=== PATIENT | male | born 1995 | race American Indian/Alaskan Native ===

== ENCOUNTER 2017-11-10 14:24 | Emergency (ER) | payer SELFPAY ==
[2017-11-10 14:31] VITALS: BP 131/76; PULSE 82; RESP 18; TEMP 98; O2SAT 100
--- NOTE | 2017-11-10 15:10 | C.PDOC ---
History Of Present Illness 22-year-old male, presents to the emergency department with complaints of abdominal pain, associated with nausea, one episode of non-bloody/non-bilious vomiting and several episodes of watery/non-bloody diarrhea since 02:00 this morning. denies fever, chills, back pain, symptoms, or any other associated symptoms. No other complaints at this time. Time Seen by Provider: 11/10/17 15:07 Chief Complaint (Nursing): Abdominal Pain History Per: Patient History/Exam Limitations: no limitations Onset/Duration Of Symptoms: Days Current Symptoms Are (Timing): Still Present Past Medical History Reviewed: Historical Data, Nursing Documentation, Vital Signs Vital Signs: Last Vital Signs Temp 98.0 F 11/10/17 14:28 Pulse 82 11/10/17 14:28 Resp 18 11/10/17 14:28 BP 131/76 11/10/17 14:28 Pulse Ox 100 11/10/17 15:59 Family History: States: No Known Family Hx - Social History Hx Alcohol Use: Yes Hx Substance Use: Yes (Marijuana) Review Of Systems Constitutional: Negative for: Fever, Chills Cardiovascular: Negative for: Chest Pain Respiratory: Negative for: Shortness of Breath Gastrointestinal: Positive for: Nausea, Vomiting, Abdominal Pain, Diarrhea Genitourinary: Negative for: Hematuria Musculoskeletal: Negative for: Back Pain Physical Exam - Physical Exam Appears: Non-toxic, No Acute Distress Skin: Normal Color, Warm, Dry, No Rash Head: Normacephalic Eye(s): bilateral: PERRL Nose: Normal Oral Mucosa: Moist Lips: Normal Appearing Neck: Normal ROM Chest: Symmetrical Cardiovascular: Rhythm Regular, No Murmur Respiratory: Normal Breath Sounds, No Accessory Muscle Use Gastrointestinal/Abdominal: Soft, No Tenderness Extremity: Normal ROM, No Deformity, No Swelling Neurological/Psych: Oriented x3, Normal Speech ED Course And Treatment O2 Sat by Pulse Oximetry: 100 Medical Decision Making Medical Decision Making: Pt is refusing blood work or any treatment, he is requesting to be discharged home. This patient is choosing to leave against medical advice. I have personally explained to the pt that choosing to do so may result in permanent bodily harm or . I have discussed at great length that without further evaluation and monitoring there may be unforeseen circumstances and/or deterioration causing permanent bodily harm or as a result of their choice. The pt verbalized these risks back to the physician in laymans terms. The pt is alert, oriented, and shows the mental capacity to make clear decisions regarding the pts health care at this time. The pt continues to wish to leave against medical advice. In light of the pts decision to leave AMA, follow-up has been arranged and the pt is aware of the importance of following up as instructed. The pt has been advised that they should return to the ED immediately if they change their mind at any time, or if their condition begins to change or worsen in any way. Disposition - Disposition Referrals: [facility] [Outside] [facility] [Outside] Disposition: HOME/ ROUTINE Disposition Time: 07:00 Condition: STABLE Additional Instructions: please follow up with your doctor. return to er with worsening symptoms or concerns. Instructions: Viral Gastroenteritis, Acute Abdomen (Belly Pain), Leaving Against Medical Advice Forms: [facility] (Austrian), Work Excuse - Clinical Impression Clinical Impression: Abdominal pain, Left against medical advice - Scribe Statement The provider has reviewed the documentation as recorded by the Scribe (Jada Nation) All medical record entries made by the Scribe were at my direction and personally dictated by me. I have reviewed the chart and agree that the record accurately reflects my personal performance of the history, physical exam, medical decision making, and the department course for this patient. I have also personally directed, reviewed, and agree with the discharge instructions and disposition.
== END 2017-11-10 15:26 | disposition home or self-care (01) ==
LOC: C.ER 14:24
DX: R10.9 Unspecified abdominal pain (principal)

== ENCOUNTER 2017-12-31 15:16 | Emergency (ER) | payer OTHER ==
[2017-12-31 15:39] VITALS: BMI 23.7
[2017-12-31 15:44] VITALS: RESP 20; O2SAT 98
[2017-12-31] MEDS ORDERED: Atropine-Diphenoxylate 0.025-2.5 mg Tab PO STA (16:16)
--- NOTE | 2017-12-31 16:16 | C.PDOC ---
History Of Present Illness 22-YEAR-OLD MALE, PRESENTS TO THE EMERGENCY DEPARTMENT WITH COMPLAINTS OF DIARRHEA X 1 DAY. ONSET AFTER TURKEY CHEESE GREENBERG SANDWICH. STATES IS LACTOSE INTOL, "THIS HAPPENS TO ME WHENEVER I EAT DAIRY". NOW ASYMPT. REQUESTING WORK NOTE "BC I COULDNT GO FROM ALL THE DIARRHEA" EXAM NEG Time Seen by Provider: 12/31/17 15:59 Chief Complaint (Nursing): Abdominal Pain History Per: Patient History/Exam Limitations: no limitations Current Symptoms Are (Timing): Still Present Severity: Moderate Past Medical History Reviewed: Historical Data, Nursing Documentation, Vital Signs Vital Signs: Last Vital Signs Temp 98 F 12/31/17 16:53 Pulse 78 12/31/17 16:53 Resp 20 12/31/17 16:53 BP 129/80 12/31/17 16:53 Pulse Ox 98 12/31/17 16:53 Family History: States: No Known Family Hx - Social History Hx Alcohol Use: No Hx Substance Use: Yes (Marijuana) - Immunization History Hx Tetanus Toxoid Vaccination: No Hx Influenza Vaccination: Yes Hx Pneumococcal Vaccination: No Review Of Systems Constitutional: Negative for: Fever, Chills Cardiovascular: Negative for: Chest Pain Respiratory: Negative for: Cough, Shortness of Breath Gastrointestinal: Positive for: Diarrhea. Negative for: Nausea, Vomiting Skin: Negative for: Rash Neurological: Negative for: Weakness, Numbness, Headache, Dizziness Physical Exam - Physical Exam Appears: Non-toxic, No Acute Distress Skin: Normal Color, Warm, Dry, No Rash Head: Atraumatic, Normacephalic Eye(s): bilateral: Normal Inspection, PERRL, EOMI Nose: Normal Oral Mucosa: Moist Lips: Normal Appearing Neck: Normal ROM Chest: Symmetrical Cardiovascular: Rhythm Regular, No Murmur Respiratory: Normal Breath Sounds, No Accessory Muscle Use Gastrointestinal/Abdominal: Soft, No Tenderness, No Guarding, No Rebound Extremity: Normal ROM, No Deformity, No Swelling Neurological/Psych: Oriented x3, Normal Speech ED Course And Treatment O2 Sat by Pulse Oximetry: 98 (RA) Pulse Ox Interpretation: Normal Disposition Counseled Patient/Family Regarding: Diagnosis, Need For Followup, Rx Given - Disposition Referrals: [facility] [Other] [facility] [Outside] [facility] [Outside] Disposition: HOME/ ROUTINE Disposition Time: 16:15 Condition: GOOD Additional Instructions: TAKE ANY OVER THE COUNTER MEDICATION FOR DIARRHEA. Instructions: Diarrhea and Traveler's Diarrhea, Adult (DC) Forms: [facility] (Bhutanese), Work Excuse - Clinical Impression Clinical Impression: Diarrhea - Scribe Statement The provider has reviewed the documentation as recorded by the Scribe (Jada Nation) All medical record entries made by the Scribe were at my direction and personally dictated by me. I have reviewed the chart and agree that the record accurately reflects my personal performance of the history, physical exam, medical decision making, and the department course for this patient. I have also personally directed, reviewed, and agree with the discharge instructions and disposition.
[2017-12-31] MEDS ORDERED: Atropine-Diphenoxylate 0.025-2.5 mg Tab ONE (16:51)
[2017-12-31 16:54] VITALS: BP 129/80; PULSE 78; TEMP 98
== END 2017-12-31 16:57 | disposition home or self-care (01) ==
LOC: C.ER 15:16
DX: R19.7 Diarrhea, unspecified (principal)

== ENCOUNTER 2018-01-18 13:54 | Emergency (ER) | payer OTHER ==
[2018-01-18 13:54] VITALS: BMI 23.7
[2018-01-18 14:08] VITALS: BP 137/82; PULSE 86; RESP 18; TEMP 98.4; O2SAT 98
--- NOTE | 2018-01-18 14:32 | C.PDOC ---
History Of Present Illness 22 y/o male presents to the ER complaining of intermittent diarrhea which has been present for the past few days. Patient states that he was evaluated for abdominal and diarrhea in [facility] in October 2017. At the time, he refused to have any bloodwork and tests done and he signed out AMA. Patient reports that he was evaluated for diarrhea in [facility] again on December and he was discharged home. He notes that he was instructed to follow up with with clinic but he did not follow up. Denies having abdominal pain, nausea, and vomiting. Chief Complaint (Nursing): GI Problem History Per: Patient History/Exam Limitations: no limitations Onset/Duration Of Symptoms: Days Current Symptoms Are (Timing): Still Present Severity: Moderate Past Medical History Reviewed: Historical Data, Nursing Documentation, Vital Signs Vital Signs: Last Vital Signs Temp 98.4 F 01/18/18 14:04 Pulse 86 01/18/18 14:04 Resp 18 01/18/18 14:04 BP 137/82 01/18/18 14:04 Pulse Ox 98 01/18/18 16:43 - Medical History PMH: No Chronic Diseases Surgical History: No Surg Hx Family History: States: No Known Family Hx - Social History Hx Alcohol Use: Yes Hx Substance Use: Yes (Marijuana) - Immunization History Hx Tetanus Toxoid Vaccination: No Hx Influenza Vaccination: Yes Hx Pneumococcal Vaccination: No Review Of Systems Except As Marked, All Systems Reviewed And Found Negative. Constitutional: Negative for: Fever, Chills Gastrointestinal: Positive for: Diarrhea. Negative for: Nausea, Vomiting, Abdominal Pain Physical Exam - Physical Exam Appears: Non-toxic, No Acute Distress Skin: Normal Color, Warm, Dry Head: Atraumatic, Normacephalic Eye(s): bilateral: Normal Inspection Nose: Normal Oral Mucosa: Moist Neck: Supple Chest: Symmetrical Cardiovascular: Rhythm Regular Respiratory: Normal Breath Sounds, No Rales, No Rhonchi, No Wheezing Gastrointestinal/Abdominal: Normal Exam, Soft, No Tenderness, No Guarding, No Rebound Extremity: Normal ROM Neurological/Psych: Oriented x3, Normal Speech ED Course And Treatment O2 Sat by Pulse Oximetry: 98 (RA) Pulse Ox Interpretation: Normal Progress Note: Patient refused to have bloodwork and other tests done. Patient has been instructed to follow up with clinic and GI in 2-3 days. Disposition - Disposition Referrals: [facility] [Outside] Disposition: HOME/ ROUTINE Disposition Time: 14:31 Condition: STABLE Additional Instructions: Follow up in Clinic and with Chair Maker within 2-3 days. Return to ED if feel worse. Use OTC diarrhea medications as needed. Instructions: Diarrhea and Traveler's Diarrhea, Adult (DC) Forms: [facility] (Amharic), Work Excuse - Clinical Impression Clinical Impression: Diarrhea - PA / PIPE TESTER / Resident Statement MD/DO has reviewed & agrees with the documentation as recorded. - Scribe Statement The provider has reviewed the documentation as recorded by the Justo Zimmerman Provider Attestation All medical record entries made by the Justo were at my direction and personally dictated by me. I have reviewed the chart and agree that the record accurately reflects my personal performance of the history, physical exam, medical decision making, and the department course for this patient. I have also personally directed, reviewed, and agree with the discharge instructions and disposition.
== END 2018-01-18 14:42 | disposition home or self-care (01) ==
LOC: C.ER 13:54
DX: R19.7 Diarrhea, unspecified (principal)

== ENCOUNTER 2018-08-26 14:34 | Emergency (ER) | payer OTHER ==
[2018-08-26 14:35] VITALS: BMI 23.7
[2018-08-26 15:01] VITALS: BP 145/80; PULSE 87; RESP 16; TEMP 99.4; O2SAT 98
--- NOTE | 2018-08-26 15:26 | C.PDOC ---
History Of Present Illness 23 year old male presents the ED for evaluation of diarrhea x1 day. Patient states he had episodes of loose, watery (non-bloody/bilious) diarrhea after having a cheese quesadilla at 1300 yesterday. Patient has history of lactose intolerance, and states he has experienced similar symptoms having eating dairy products in the past. Patient states his last bowel movement was at 0600 today. Patient denies fever, chills, nausea, vomiting, rash. Time Seen by Provider: 08/26/18 14:55 Chief Complaint (Nursing): GI Problem History Per: Patient History/Exam Limitations: no limitations Onset/Duration Of Symptoms: Hrs Current Symptoms Are (Timing): Still Present Associated Symptoms: Diarrhea. denies: Fever, Chills, Nausea, Vomiting Exacerbating Factors: Food Past Medical History Reviewed: Historical Data, Nursing Documentation, Vital Signs Vital Signs: Last Vital Signs Temp 99.4 F 08/26/18 14:59 Pulse 87 08/26/18 14:59 Resp 16 08/26/18 14:59 BP 145/80 08/26/18 14:59 Pulse Ox 98 08/26/18 14:59 - Medical History PMH: No Chronic Diseases Surgical History: No Surg Hx Family History: States: Unknown Family Hx - Social History Hx Alcohol Use: Yes Hx Substance Use: Yes - Immunization History Hx Tetanus Toxoid Vaccination: Yes Hx Influenza Vaccination: No Hx Pneumococcal Vaccination: No Review Of Systems Constitutional: Negative for: Fever, Chills Gastrointestinal: Positive for: Diarrhea. Negative for: Nausea, Vomiting Physical Exam - Physical Exam Appears: Well, Non-toxic, No Acute Distress, Other (comfortable ) Skin: Normal Color, Warm, Dry Head: Atraumatic, Normacephalic Eye(s): bilateral: Normal Inspection Oral Mucosa: Moist Neck: Supple Chest: Symmetrical, No Deformity, No Tenderness Cardiovascular: Rhythm Regular, No Murmur Respiratory: Normal Breath Sounds, No Rales, No Rhonchi, No Wheezing Gastrointestinal/Abdominal: Bowel Sounds (normal ), Soft, Tenderness (mild, epigastric ), No Guarding, No Rebound Extremity: Normal ROM, Capillary Refill (less than 2 seconds ) Neurological/Psych: Oriented x3, Normal Speech, Normal Cognition ED Course And Treatment O2 Sat by Pulse Oximetry: 98 (on RA ) Pulse Ox Interpretation: Normal Disposition Counseled Patient/Family Regarding: Diagnosis, Need For Followup, Rx Given - Disposition Referrals: [facility] [Outside] Disposition: HOME/ ROUTINE Disposition Time: 15:30 Condition: STABLE Additional Instructions: FOLLOW UP IN THE MEDICAL CLINIC IN 1-2 DAYS USE MEDICATION NEEDED FOR ABDOMINAL CRAMPS DRINK PLENTY OF CLEAR FLUIDS RETURN TO ER IF SYMPTOMS WORSEN Prescriptions: Dicyclomine [Bentyl] 20 mg PO Q6 PRN #15 tab PRN Reason: ABDOMINAL CRAMPING Instructions: Lactose Intolerance, Lactose-Controlled Diet (ED) Forms: [employer] [facility] (Romansh), Work Excuse Print Language: LUXEMBOURGER - Clinical Impression Clinical Impression: Lactose intolerance, Diarrhea - Scribe Statement The provider has reviewed the documentation as recorded by the Scribe (Debbi Zarco tel) Provider Attestation: All medical record entries made by the Scribe were at my direction and personally dictated by me. I have reviewed the chart and agree that the record accurately reflects my personal performance of the history, physical exam, medical decision making, and the department course for this patient. I have also personally directed, reviewed, and agree with the discharge instructions and disposition.
== END 2018-08-26 15:45 | disposition home or self-care (01) ==
LOC: C.ER 14:34
DX: E73.9 Lactose intolerance, unspecified (principal); R19.7 Diarrhea, unspecified